=== PATIENT | female | born 1995 | race Caucasian/White ===

== ENCOUNTER 2023-04-05 18:50 | Inpatient (IN) | payer OTHER, SELFPAY ==
[2023-04-05 19:11] VITALS: RESP 18
--- NOTE | 2023-04-05 19:14 | ADMGEN ---
This patient, Kiki Rivera, was admitted to Labor/Delivery/Recovery 108-00. Patient/family oriented to hospital policies and general routines including ID bracelet, bed and alarms, visiting hours, pain management, procedures, bathroom and other care routines, personal items, smoking policy, room service/diet, and visiting hours. Information on how to activate the Rapid Response Team has been discussed. Patient/Family are encouraged to report perceived risks to care and to ask questions if they do not understand what they are told or what they should do.
[2023-04-05 19:26] VITALS: BP 135/83; PULSE 69
[2023-04-05 19:28] VITALS: BP 132/82; PULSE 72
[2023-04-05] MEDS: miSOPROStol 25 MCG TABLET 50 MCG BY MOUTH ×2 (19:47→23:51)
[2023-04-05 19:51] LABS: Basophils Percent Auto 0.3 % (0.2-1.2); Eosinophils Absolute Auto 0.1 K/mm3 (0-0.3); Eosinophils Percent Auto 1.2 % (0-4.4); Hematocrit 34.3 % (37.0-47.0); Hemoglobin 11.5 g/dL (12.0-15.0); Immature Granulocyte Absolute 0.05 K/mm3 (0.00-0.031); Immature Granulocyte Percent A 0.7 % (0-0.5); Lymphocytes Absolute Auto 1.98 K/mm3 (0.9-3.2); Lymphocytes Percent Auto 28.9 % (18.3-44.2); Mean Corpuscular HGB Conc 33.5 g/dl (32-36); Mean Corpuscular Hemoglobin 31.8 pg (26-34); Mean Corpuscular Volume 94.8 fl (80-100); Mean Platelet Volume 13.5 fl (7.4-10.4); Monocytes Absolute Auto 0.4 K/mm3 (0.1-0.6); Neutrophils Absolute Auto 4.3 K/mm3 (1.3-6.7); Neutrophils Percent Auto 62.9 % (45.5-73.1); Platelet Count Result 151 k/mm3 (150-375); Red Blood Count 3.62 M/mm3 (4.2-5.4); Red Cell Distribution Width 12.6 % (11.5-14.5); White Blood Count 6.9 K/mm3 (4.5-10.0)
[2023-04-05 20:19] VITALS: BMI 28.8
[2023-04-05 22:40] VITALS: TEMP 36.6
[2023-04-06] VITALS (177 sets, daily range): BP systolic 91–137; BP diastolic 47–101; PULSE 34–138; RESP 16–18; TEMP 36.4–36.6; O2SAT 87–100
[2023-04-06] MEDS: OXYTOCIN 30 UNITS/NS 500 ML 30 UNITS/500 ML BAG IV CONT (04:01)
[2023-04-06] MEDS: LACTATED RINGERS 1,000 ML 125 ML IV CONT ×2 (04:03→08:49)
--- NOTE | 2023-04-06 07:33 | WPDOBADMIT ---
Obstetrics - Admit Note Admission Note: record reviewed. No pertinent additions to the history and/or any subsequent changes in the physical findings that are not consistent with the expected course of the were found. Additions to the history and/or subsequent changes in the physical findings follow. iOL IUGR, SVE /-1 AROM moderate amount of clear, odorless fluid, anticipate vaginal delivery
--- NOTE | 2023-04-06 08:56 | WPDANESEPP ---
Anes - Eval Pre Procedure Procedure: epidural Date/Time: 04/06/23 08:56 Pre Op Diagnosis: IOL Patient Data Age: 27 Gender: F Height: 1.63 m Weight: 76 kg Last Vital Signs Temp 36.5 C 04/06/23 07:30 Pulse 53 L 04/06/23 08:46 Resp 16 04/06/23 07:30 BP 127/67 04/06/23 08:46 Pulse Ox 100 04/06/23 08:51 O2 Del Method Room Air 04/05/23 19:11 Allergies Allergy/AdvReac Type Severity Reaction Status Date / Time No Known Allergies Allergy Verified 04/05/23 19:22 Home Medications Medication Instructions Recorded Confirmed Type doxylamine succinate 25 mg tablet 25 mg PO DAILY 03/17/23 04/05/23 History (Unisom (doxylamine)) vits no.126-ferrous fum 1 tablet PO DAILY 03/17/23 04/05/23 History 28 mg iron-folic acid 800 mcg tablet (Classic ) Laboratory Tests 04/05/23 19:03 WBC 6.9 K/mm3 (4.5-10.0) RBC 3.62 L M/mm3 (4.2-5.4) Hgb 11.5 L g/dL (12.0-15.0) Hct 34.3 L % (37.0-47.0) MCV 94.8 fl (80-100) MCH 31.8 pg (26-34) MCHC 33.5 g/dl (32-36) RDW 12.6 % (11.5-14.5) Plt Count 151 k/mm3 (150-375) MPV 13.5 H fl (7.4-10.4) Immature Gran % (Auto) 0.7 H % (0-0.5) Neut % (Auto) 62.9 % (45.5-73.1) Lymph % (Auto) 28.9 % (18.3-44.2) Atlantic % (Auto) 6.0 % (2.6-8.5) Eos % (Auto) 1.2 % (0-4.4) Baso % (Auto) 0.3 % (0.2-1.2) Lymph # (Auto) 1.98 K/mm3 (0.9-3.2) Atlantic # (Auto) 0.4 K/mm3 (0.1-0.6) Eos # (Auto) 0.1 K/mm3 (0-0.3) Baso # (Auto) 0.0 K/mm3 (0.0-0.1) Abs Immat Gran (auto) 0.05 H K/mm3 (0.00-0.031) Absolute Neuts (auto) 4.3 K/mm3 (1.3-6.7) Absolute Nucleated RBC 0.0 K/mm3 (0.0-0.012) Nucleated RBC % 0.0 % (0.0-0.2) % Immature Plt Fraction 17.0 H % (0.9-11.2) RPR Pending Blood Type A Positive Antibody Screen Negative Patient hx anesthesia problems: none Family hx anesthesia problems: none Results Review: All pre-operative results and documents have been reviewed as part of the pre-operative evaluation. [facility] Family History Family History Father Hypertension Grandparent Breast cancer in female Diabetes mellitus Father Hypertension Social History Social History Years smoked: 2 Smoking status: Former smoker Tobacco type: cigarettes Substance use: never Do You Feel Safe in your Home?: No Lack of Transportation: No Lack of Food: Never True Current Housing: I Have Housing Concerned About Future Housing: No Difficulty Paying Gas/Electric Bills: No Difficulty Paying for Meds: No Currently Unemployed: No Education: Associate Degree Difficulty w/ Childcare or Family Care: No Spiritual care concerns: No Exam Day of Procedure 04/06/23 08:56 Patient weight: overweight Heart: regular rate and rhythm Lungs: normal air movement Airway: Mallampati scale Neurological: alert and oriented
--- NOTE | 2023-04-06 13:41 | PM.OBPRVD ---
OB - Vaginal Delivery Note Procedure Delivery date: 04/06/23 Events: Intrauterine Growth Restriction (IUGR) Induction method: AROM, Per Misoprostol Protocol and Per Pitocin Protocol Delivery monitor: External FHT and External Uterine Route of delivery: Episiotomy description: None Laceration Description: Periurethral (with ext to clitoris) Delivery repair: vicryl Specimen: Yes Quantitative Blood Loss (ml): 80 Anesthesia type: Epidural Disposition: Floor Baby Date of : 04/06/23 Time of : 13:25 Weeks of gestation at delivery: 38 gender: Female Weight (pounds): 6 Weight (ounces): 2 presentation: vertex position: Left Occiput Anterior Placenta delivery description: Spontaneous Cord Vessel Description: 3 Vessels, Nuchal Cord, Loose, Reduced and Delayed Cord Clamping score one minute: 7 score five minutes: 9 Narrative: mother and baby in stable condition
[2023-04-06] MEDS: OXYTOCIN 30 UNITS/NS 500 ML 30 UNITS/500 ML BAG 125 UNITS IV CONT (14:00)
[2023-04-06 15:27] LABS: Rapid Plasma Reagin Non-Reactive (NonReactive)
[2023-04-06] MEDS: BENZOCAINE 20% AER SPR (*SP) 56 GM CAN 1 SPRAY TOPICAL (15:50)
[2023-04-06] MEDS: WITCH HAZEL 40 PADS 1 PAD TOPICAL (15:50)
--- NOTE | 2023-04-06 16:05 | OBPPTRN ---
Patient transferred to post room #285 via wheelchair. Support person present. Oriented to unit, room, information board, rooming in, admission packet and security measures. Patient verbalizes understanding.
[2023-04-06] MEDS: ACETAMINOPHEN 325 MG TABLET 650 MG PO (23:10)
[2023-04-06] MEDS: IBUPROFEN 600 MG TABLET PO (23:10)
[2023-04-07 04:30] VITALS: BP 108/70; PULSE 56; RESP 16; TEMP 36.6; O2SAT 96
[2023-04-07 05:09] LABS: Hemoglobin 10.9 g/dL (12.0-15.0)
[2023-04-07 07:15] VITALS: BP 103/61; PULSE 64; RESP 16; TEMP 36.7; O2SAT 100
--- NOTE | 2023-04-07 08:01 | PM.OBPNVD ---
OB - PN: Subj Subjective Date/time seen: 04/07/23 08:01 Patient comments: no complaints, pain well controlled, incisional pain, tolerating diet and flatus present OB - PN: Obj Data Labs 04/07/23 04:28 Labs: Laboratory Results - last 24 hr 04/05/23 04/07/23 19:03 04:28 Hgb 10.9 L Hct 33.0 L RPR Non-reactive OB - PN A/P Plan day: 1 Plan: routine care Comments: No problems, routine care Time Spent With Patient Time: Total time spent is greater than 50% in coordination of care (as documented) at patient's floor/unit and/or counseling patient: Exam Const: General: comfortable, no acute distress and alert Resp: Effort & Inspection: normal respiratory effort Auscultation: no crackles, no rales and no rhonchi Cardio: Rate: regular rate Heart sounds: no click, no murmurs and no rubs GI: Inspection: non-distended GI Palp: No Tenderness to palpation present (GI) Auscultation: normal bowel sounds Other: Incision - CDI Extrem: General: normal to inspection, no pedal edema and no calf tenderness
--- NOTE | 2023-04-07 08:39 | WPDANESPN ---
Anes - Prog Note Post-Op Date/Time: 04/07/23 08:39 Cardiovascular status: normal Respiratory status: normal Airway patency: baseline Mental status: baseline Post-Op hydration status: normal Vital Signs: Last Vital Signs Temp 36.6 C 04/07/23 04:30 Pulse 56 L 04/07/23 04:30 Resp 16 04/07/23 04:30 BP 108/70 04/07/23 04:30 Pulse Ox 96 04/07/23 04:30 O2 Del Method Room Air 04/07/23 04:30 Pain Score (VAS): 2 I/O: Intake & Output 04/06/23 04/07/23 04/07/23 23:59 07:59 15:59 Intake Total 240 Balance 240 Laboratory Tests 04/07/23 04:28 04/05/23 04/07/23 19:03 04:28 Hgb 10.9 L Hct 33.0 L RPR Non-reactive Post-procedural complaints: none Patient Feedback: Patient satisfied with anesthetic care.
[2023-04-07] MEDS: ACETAMINOPHEN 325 MG TABLET 650 MG PO (09:44)
[2023-04-07] MEDS: DOCUSATE SODIUM 100 MG CAPSULE PO (09:48)
[2023-04-07] MEDS: MULTIVIT/MIN/PREN/FOL AC/IRON TABLET 1 TAB PO (09:48)
[2023-04-07] MEDS: IBUPROFEN 600 MG TABLET PO (09:50)
[2023-04-09 10:31] VITALS: BP 133/88; PULSE 84; RESP 18; TEMP 37.1; O2SAT 100
--- NOTE | 2023-04-09 15:35 | PM.OBDSVD ---
DS: Admitting Diagnosis Discharge Date 04/07/23 Admitting Diagnosis IOL, IUGR DS: Discharge Diagnosis Discharge Diagnosis (1) Vaginal delivery: Code(s): O80 - Encounter for full-term uncomplicated delivery Status: Acute OB - DS: Summary OB Procedures : None OB Procedures Intrapartum: Spontaneous Vag Delivery OB Procedures: : None Peripartum Data Laceration Description: Periurethral (with ext to clitoris) Episiotomy description: None Time Spent with Patient Time attestation: Total time spent providing and/or coordinating discharge services: DS: Data Data Completed and Pending Pending studies at discharge: Pending at discharge 04/06/23 13:59 Surgical [PTH] Routine Discharge Plan Discharge Consulting providers: Daylin Moon; Jerri Quigley; Namita Jurado Discharging Clinician: Kary Ellison Patient Disposition: Home, Self-Care Activity: pelvic rest Diet: regular Discharge Instructions: Education: Mom and Baby Guide Given to: Follow-Up: Call your delivering provider's office for an appointment to be seen in: 4 weeks Mom and baby should come to the [facility] for the follow-up appointment. Appointment Date/Time: Saturday, April 08, 2023 at 10:00 am What to expect at your follow-up visit: Call [phone] if you are unable to keep your appointment time. BREAST CARE: * Wear a snug supportive bra. * For engorgement discomfort: Breast Feeding: * Apply warm moist washcloths * Express milk as needed to relieve engorgement * Wear loose clothing * For sore nipples: * Identify correct latch-on * Apply warm moist washcloths before and after nursing * Air dry nipples after nursing * May apply Lansinoh cream to nipples PERINEAL CARE: * Until bleeding stops, use your giovanny bottle after urinating * Change your pad frequently throughout the day * You may take sitz baths several times a day (fill your bathtub with warm water and soak for 20 minutes.) Do NOT bathe in the water * No tub baths until seen by your physician - You may shower ACTIVITY: * Rest as much as possible. * Do not exercise or lift anything heavier than your baby (such as laundry or other children.) * Avoid stairs or driving as much as possible. * Do not put anything into the vagina. No douching, tampons, or sexual activity until seen by physician. NOTIFY PHYSICIAN IF YOU HAVE ANY QUESTIONS OR IF ANY OF THE FOLLOWING SYMPTOMS OCCUR: * If your episiotomy or incision becomes red, swollen, or more painful than what you have experienced in the hospital. * If your vaginal bleeding becomes foul smelling. * If your vaginal bleeding becomes more heavy than a period or if your bleeding changes from pink to bright red. However, you may pass an occasional walnut-sized clot once or twice for the first week . * If you experience a sharp, shooting pain in you calves. * If you discover a hard, reddened area on your breast or if you experience flu-like symptoms. DIET: * Eat regular, well-balanced meals. * Drink plenty of fluids daily. If , drink to thirst. Patient Instructions: Antibiotic Form Stand Alone Forms: General Discharge Information Follow-up/Referrals: Kary Ellison MD [Physician] - 4 Weeks Discharge Medications: Continued Classic 28 mg iron- 800 mcg Tablet 1 tablet PO DAILY Discontinued Unisom (doxylamine) 25 mg Tablet 25 mg PO DAILY Date of admission: 04/05/23 18:50 Primary Care Provider: Fozia Salazar Admitting Provider: Kary Ellison Attending physician on admission: Kary Ellison Condition: Stable
== END 2023-04-07 19:17 | disposition home or self-care (01) | DRG 807 ==
LOC: ANHOB2 04-07 17:27 → ANHLDR 04-09 12:00 → ANHOB2 04-09 12:00
PROVIDERS: Advanced Practice Midwife; Admitting Provider Obstetrics & Gynecology; PCP Nurse Practitioner Family; Visit Provider Obstetrics & Gynecology
DX: O36.5930 Maternal care for other known or suspected poor fetal growth, third trimester, not applicable or unspecified (principal); Z37.0 Single live birth; O69.81X0 Labor and delivery complicated by cord around neck, without compression, not applicable or unspecified; O71.82 Other specified trauma to perineum and vulva; Z3A.38 38 weeks gestation of pregnancy
CPT/HCPCS: 36415; 85014; 85018; 85025; 85055; 86592; 86850; 86900; 86901; 88307; A9270; J2590; J2795; J7120

== ENCOUNTER 2023-10-07 19:28 | Emergency (ER) | payer OTHER, SELFPAY ==
[2023-10-07 19:34] VITALS: BP 124/79; PULSE 73; RESP 16; TEMP 36.9; O2SAT 100
--- NOTE | 2023-10-07 20:02 | ED.GENADULT ---
HPI - General Adult General Chief complaint: Wound/Laceration Stated complaint: Insect Bite/Right Ankle Source: patient Mode of arrival: ambulatory Limitations: no limitations History of Present Illness HPI narrative: Patient presents for evaluation of an insect bite to the right Achilles region. She felt insect bite her yesterday. Today she noted bruising in the affected area. She became concerned and through a border along the bruising about 2 hours ago. She now indicates that bruising has improved. She took an allergy pill and some Benadryl earlier today which seems to be helping. Her mother is a nurse and advised that she come in for further evaluation. She is currently . She reports 1/10 pain in the affected area. Denies any discharge. No fever, chills, nausea, vomiting. Related Data Home Medications Medication Instructions Recorded Confirmed vits no.126-ferrous fum 1 tablet PO DAILY 03/17/23 04/05/23 28 mg iron-folic acid 800 mcg tablet (Classic ) escitalopram oxalate 10 mg tablet mg 10/07/23 Allergies Allergy/AdvReac Type Severity Reaction Status Date / Time No Known Allergies Allergy Verified 10/07/23 19:50 Review of Systems Review of Systems: CONSTITUTIONAL: Denies fever, chills, or sweats. EYES: Denies visual changes, redness, or discharge. ENT: Denies rhinorrhea, congestion, sore throat, or otalgia. CARDIOVASCULAR: Denies chest pain, palpitations, or edema. RESPIRATORY: Denies cough or dyspnea. GASTROINTESTINAL: Denies abdominal pain, nausea, vomiting, or diarrhea. GENITOURINARY: Denies dysuria or hematuria. SKIN: Reports bruising in the right Achilles region MUSCULOSKELETAL: Reports pain in the right Achilles region NEUROLOGIC: Denies headache, numbness, dizziness, or weakness. PSYCHIATRIC: Denies anxiety or depression. [facility] Past Medical History Medical History UTI (urinary tract infection) Vaginal delivery Surgical History Surgical History No pertinent past surgical history Family History Family History Father Hypertension Grandparent Diabetes mellitus Breast cancer in female Father Hypertension Mother Hypertension Disorder of thyroid Social History Social History Years smoked: 2 Smoking status: Former smoker Tobacco type: cigarettes Substance use: never Do You Feel Safe in your Home?: Yes Lack of Transportation: No Lack of Food: Never True Current Housing: I Have Housing Concerned About Future Housing: No Difficulty Paying Gas/Electric Bills: No Difficulty Paying for Meds: No Currently Unemployed: No Education: Associate Degree Difficulty w/ Childcare or Family Care: No Living arrangements: with family Occupation/Education: occupation Additional occupation/education comments: [employer] Gender identity (if verbalized by the patient): Female Spiritual care concerns: No Agree to blood products: Yes Exam Narrative: GENERAL: Well-appearing, well-nourished, and in no acute distress. HEAD: Normocephalic, atraumatic. EYES: PERRLA and EOMI. ENT: Nares clear, no rhinorrhea or epistaxis. Mucous membranes moist. Oropharynx without tonsillar hypertrophy exudate or other lesions. Bilateral TMs pearly roberson nonbulging NECK: Supple. No adenopathy or masses. No carotid bruits or JVD CHEST: Clear to auscultation. No respiratory distress. No wheezes rales or rhonchi HEART: Regular rate and rhythm. No murmur heard. Normal peripheral pulses. ABDOMEN: Soft, nontender, nondistended, normal active bowel sounds. EXTREMITIES: Normal range of motion. No edema. SKIN: There is mild ecchymosis noted in the right Achilles region NEURO: No focal deficits. Alert and santiago
== END 2023-10-07 20:04 | disposition home or self-care (01) ==
PROVIDERS: Emergency Provider Nurse Practitioner; PCP Nurse Practitioner Adult Health
DX: S80.861A Insect bite (nonvenomous), right lower leg, initial encounter (principal); W57.XXXA Bitten or stung by nonvenomous insect and other nonvenomous arthropods, initial encounter; Z87.891 Personal history of nicotine dependence
CPT/HCPCS: 99213; G0463

== ENCOUNTER 2024-09-12 19:14 | Emergency (ER) | payer OTHER, SELFPAY ==
--- OUTSIDE RECORDS SUMMARY | 2024-09-12 19:16 | XMS_ITS | Encounter Summary ---
Author Organization [facility] Address [address] [place] [address] Care Team Providers Care Motor Scooter Mechanic Name Role Phone Marli Bernal Primary Care Provider [phone] Encounter Details Date Type Department Care Team (Late st Contact Info) Description 03/19/2020 [employer] Message [facility] [address] [place] [address] [place] [address] [place] [address] RE: Test Results Social History Tobacco Use Types Packs/Day Years Used Date Smoking Tobacco: Never Smokeless Tobacco: Never Alcohol Use Standard Drinks/Week Comments Yes 0 (1 standard drink = 0.6 oz pur e alcohol) socially Comments Unknown Sex and Gender Information Value Date Recorded Sex Assigned at Not on file Legal Sex Female 8:11 PM CDT Gender Identity Female 03/27/2022 9:28 AM STAIN WIPER Sexual Orientation Not on file COVID-19 Exposure Response Date Recorded In the last month, have you been in contact with someone who was confirmed or suspected to have Coronavirus / COVID-19? No / Unsure 03/16/2020 3:28 PM STAIN WIPER documented as of this encounter Plan of Treatment Not on file documented as of this encounter Visit Diagnoses Not on filedocumented in this encounter Care Teams Motor Scooter Mechanic Relationship Specialty [place] [address] [place] [address] PCP - General PHYSICIAN AND TAXI INSTRUCTOR BUS TROLLEY 03/16/20 documented as of this encounter
--- OUTSIDE RECORDS SUMMARY | 2024-09-12 19:16 | XMS_ITS | Encounter Summary ---
Author Organization [facility] Address [address] [place] [address] Care Team Providers Care Fuel Agent Name Role Phone Marli Bernal Primary Care Provider Encounter Details Date Type Department Care Team (Late st Contact Info) Description 04/01/2020 [email or web address] Message [facility] [address] [place] [address] [place] [address] [place] [address] Test Results Social History Tobacco Use Types Packs/Day Years Used Date Smoking Tobacco: Never Smokeless Tobacco: Never Alcohol Use Standard Drinks/Week Comments Yes 0 (1 standard drink = 0.6 oz pur e alcohol) socially Comments Unknown Sex and Gender Information Value Date Recorded Sex Assigned at Not on file Legal Sex Female 8:11 PM CDT Gender Identity Female 03/27/2022 9:28 AM SENIOR OUTSIDE SALES REPRESENTATIVE Sexual Orientation Not on file COVID-19 Exposure Response Date Recorded In the last month, have you been in contact with someone who was confirmed or suspected to have Coronavirus / COVID-19? No / Unsure 03/16/2020 3:28 PM SENIOR OUTSIDE SALES REPRESENTATIVE documented as of this encounter Plan of Treatment Not on file documented as of this encounter Visit Diagnoses Not on filedocumented in this encounter Care Teams Fuel Agent Relationship Specialty [place] [address] [place] [address] PCP - General PHYSICIAN SALT MAKER 03/16/20 documented as of this encounter
--- OUTSIDE RECORDS SUMMARY | 2024-09-12 19:16 | XMS_ITS | Encounter Summary ---
Author Organization [facility] Address [address] [place] [address] Care Team Providers Care Shank Breaker Name Role Phone Marli Bernal Primary Care Provider Encounter Details Date Type Department Care Team (Late st Contact Info) Description 06/16/2020 [employer] Message [facility] Medicine [facility] [address] [place] [address] [place] [address] [place] [address] RE: Question Social History Tobacco Use Types Packs/Day Years Used Date Smoking Tobacco: Never Smokeless Tobacco: Never Alcohol Use Standard Drinks/Week Comments Yes 0 (1 standard drink = 0.6 oz pur e alcohol) socially Comments Unknown Sex and Gender Information Value Date Recorded Sex Assigned at Not on file Legal Sex Female 8:11 PM CDT Gender Identity Female 03/27/2022 9:28 AM WOOD BOX MAKER Sexual Orientation Not on file documented as of this encounter Plan of Treatment Not on file documented as of this encounter Visit Diagnoses Not on filedocumented in this encounter Care Teams Shank Breaker Relationship Specialty [place] [address] [place] [address] PCP - General PHYSICIAN BREAD DISTRIBUTOR 03/16/20 documented as of this encounter
--- OUTSIDE RECORDS SUMMARY | 2024-09-12 19:16 | XMS_ITS | Encounter Summary ---
Author Organization [facility] Address [address] [place] [address] Care Team Providers Care Carpet Mechanic Name Role Phone Marli Bernal Primary Care Provider Encounter Details Date Type Department Care Team (Late st Contact Info) Description 04/02/[address] [employer] [address] [facility] [address] [place] [address] [facility]: Pap smear results Social History Tobacco Use Types Packs/Day Years Used Date Smoking Tobacco: Never Smokeless Tobacco: Never Alcohol Use Standard Drinks/Week Comments Yes 0 (1 standard drink = 0.6 oz pur e alcohol) socially Comments Unknown Sex and Gender Information Value Date Recorded Sex Assigned at Not on file Legal Sex Female 8:11 PM CDT Gender Identity Female 03/27/2022 9:28 AM MELTER SUPERVISOR OXYGEN FURNACE Sexual Orientation Not on file COVID-19 Exposure Response Date Recorded In the last month, have you been in contact with someone who was confirmed or suspected to have Coronavirus / COVID-19? No / Unsure 03/16/2020 3:28 PM MELTER SUPERVISOR OXYGEN FURNACE documented as of this encounter Plan of Treatment Not on file documented as of this encounter Visit Diagnoses Not on filedocumented in this encounter Care Teams Carpet Mechanic Relationship Specialty [place] [address] [place] [address] PCP - General PHYSICIAN PERFUMER 03/16/20 documented as of this encounter
--- OUTSIDE RECORDS SUMMARY | 2024-09-12 19:17 | XMS_ITS | Encounter Summary ---
Author Organization [facility] Address [address] [place] [address] Care Team Providers Care Buyer Agent Name Role Phone Marli Bernal Primary Care Provider Encounter Details Date Type Department Care Team (Late st Contact Info) Description 03/11/2021 [employer] Message [facility] Family & Internal Medicine [facility] [address] [place] [address] [place] [address] [place] [address] [address] Social History Tobacco Use Types Packs/Day Years Used Date Smoking Tobacco: Never Smokeless Tobacco: Never Alcohol Use Standard Drinks/Week Comments Yes 0 (1 standard drink = 0.6 oz pur e alcohol) socially PHQ-2 Answer Date Recorded PHQ-2 Score - If the patient scores above 3, please move on to questions 3-9 0 10/20/2020 Comments No Sex and Gender Information Value Date Recorded Sex Assigned at Not on file Legal Sex Female 8:11 PM CDT Gender Identity Female 03/27/2022 9:28 AM DRY MOP MAKER Sexual Orientation Not on file documented as of this encounter Plan of Treatment Not on file documented as of this encounter Visit Diagnoses Not on filedocumented in this encounter Additional Health Concerns Assessment Noted Time PHQ-9 Depression Total Score: 0 10/21/19 21 12:50 PM CDT documented as of this encounter Care Teams Buyer Agent Relationship Specialty [place] [address] [facility] [place] [address] PCP - General PHYSICIAN LEGAL ARBITRATOR 03/16/20 documented as of this encounter
--- OUTSIDE RECORDS SUMMARY | 2024-09-12 19:17 | XMS_ITS | Clinical Summary ---
Author Organization [facility] Address [address] [place] [address] Care Team Providers Care Sales Representatives Name Role Phone Lanie Betancourt RN Unavailable Unavailable Unknown, Provider Primary Care Provider Unavaila ble Source Comments [facility],non-owned Affiliates and Associated Physician Practices is amultiple site organization consisting of ambulatory clinics and hospital sitesin [place], [place], [place] and [place]. This disclosure is being madepursuant to the Care Everywhere program and may not contain all information available regarding this patient. Last updated 17.[facility] Allergies No known active allergies Medications * Be aware that medications may not be up to date on this document. Alwaysverify current medications with the patient. levonorgestrel (MIRENA) 20 MCG/24HR IUD Active ibuprofen (MOTRIN) 600 MG tablet Take 1 tablet by mouth every 6 hours as needed for Pain 30 tablet 04/13/2017 Active PROCTOZONE-HC 2.5 % cream 3 04/24/2017 Active fluconazole (DIFLUCAN) 200 MG tabletIndication s:Vulvar itching One by mouth every other day for three doses. 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 Social History Tobacco Use Types Packs/Day Years Used Date Smoking Tobacco: Never Smokeless Tobacco: Never Alcohol Use Standard Drinks/Week Comments Yes 0 (1 standard drink = 0.6 oz pur e alcohol) occassional Comments No Sex and Gender Information Value Date Recorded Sex Assigned at Not on file Legal Sex Female 5:44 AM FRENCH WEAVER Gender Identity Not on file Sexual Orientation Not on file Last Filed Vital Signs Vital Sign Reading Time Taken Comments Blood Pressure 122/68 05/28/2017 2:31 PM CDT Pulse 68 04/13/2017 2:26 PM FRENCH WEAVER Temperature 36.4 C (97.5 F) 04/13/2017 12:40 PM FRENCH WEAVER Respiratory Rate 16 04/13/2017 2:26 PM FRENCH WEAVER Oxygen Saturation 100% 04/13/2017 2:26 PM FRENCH WEAVER Inhaled Oxygen Concentration - - Weight 70.3 kg (155 lb) 05/28/2017 2:31 PM CDT Height 162.6 cm (5' 4) 05/28/2017 2:31 PM CDT Body Mass Index 26.61 05/28/2017 2:31 PM CDT Plan of Treatment Health Maintenance Due Date Last Done Comments HEPATITIS C SCREENING 07/12/2014 DTAP/TDAP/TD VACCINES (1 - Tdap) 07/17/2015 HEPATITIS B VACCINE (1 of 3 - 19+ 3-dose series) 07/17/2015 PAP SMEAR 2017 HPV VACCINE (1 - 3-dose SCDM series) 07/17/2023 COVID-19 VACCINE (1 - 2023-2 5 season) 2023 DEPRESSION SCREENING 02/06/2024 INFLUENZA VACCINE (#1) 2024 , 11/06/2019, 11/14/2017 ZOSTER VACCINE (1 of 2) 2046 HIV SCREENING Completed 10/06/2022 HIB VACCINE Aged Out No longer eligi ble based on patient's age to complete this topic MENINGOCOCCAL (Group B) VACCINE SHARED DECISION-MAKING Aged Out No longer eligible based on patient's age to complete this topic MENINGOCOCCAL GROUPS A/C/Y/W VACCINE Aged Out No longer eligible b ased on patient's age to complete this topic PNEUMOCOCCAL VACCINE Aged Out No long er eligible based on patient's age to complete this topic Insurance [facility] Care Teams Sales Representatives Relationship Specialty Start Date End Date Unknown, Provider PCP - General 05/23/17 Lanie Betancourt, RN Registered Nurse 04/13/17
--- OUTSIDE RECORDS SUMMARY | 2024-09-12 19:17 | XMS_ITS | Clinical Summary ---
Author Organization [facility] Address [facility] [place] [address] Care Team Providers Care Church Warden Name Role Phone Grisel Bernal Primary Care Provider [phone] Allergies No known active allergies Medications levonorgestrel (MIRENA, 52 MG,) 20 MCG/24HR IUD 1 Intra Uterine Device by Intrauterine route once. Active buPROPion XL (WELLBUTRIN XL) 300 MG 24 hr tabletIndicatio ns:Decreased libido TAKE 1 TABLET(300 MG) BY MOUTH DAILY 90 tablet 2 Active spironolactone (ALDACTONE) 100 MG tabletIndicatio ns:Acne, unspecified acne type Take 1 tablet (100 mg total) by mouth daily. 90 tablet 3 Active ondansetron (ZOFRAN) 4 MG tabletIndicatio ns:Nausea Take 1 tablet (4 mg total) by mouth every 8 (eight) hours as needed for Nausea. 20 tablet 3 Active Active Problems Problem Noted Date Diagnosed Date Rectal bleeding 10/27/2020 Immunizations Immunization Administration Dates Next Due Dtap 08/02/2001, 8,01/16/1997,1996,1996 Hepatitis B Pediatric 05/04/1997,1996,07/06 Hib 01/16/1997,1996,1996 Hib (Generic) 01/16/1997,1996,1996 Influenza (Generic) 11/14/2017 Influenza Adult (Generic) 11/06/2019 MMR 08/02/2001,07/28/1997 Opv 08/02/2001,01/16/1997,1996 ,1996 Polio Opv (Generic) 08/02/2001,01/16/1997,1996,1996 Tdap (Generic) 03/20/2017 Varicella Vaccine 10/03/2016,07/28/1997 Family History Medical History Relation Comments Hyperlipidemia Father Hypertension Father Cancer Maternal Grandmother Breast canc er Hypertension Mother Thyroid Mother Relation Status Comments Father Alive Maternal Grandmother Mother Alive Social History Tobacco Use Types Packs/Day Years Used Date Smoking Tobacco: Never Smokeless Tobacco: Never Tobacco Cessation:Counseling Given: No Alcohol Use Standard Drinks/Week Comments Not Currently 0 (1 standard drink = 0.6 oz pur e alcohol) socially PHQ-2 Answer Date Recorded Patient Health Questionnaire-2 Score 0 03/30/2022 Comments No Sex and Gender Information Value Date Recorded Sex Assigned at Not on file Legal Sex Female 8:11 PM CDT Gender Identity Female 03/27/2022 9:28 AM CIGAR HEAD HOLER Sexual Orientation Not on file Last Filed Vital Signs Vital Sign Reading Time Taken Comments Blood Pressure 124/85 03/30/2022 1:58 PM CIGAR HEAD HOLER Pulse 79 03/30/2022 1:58 PM CIGAR HEAD HOLER Temperature 36.4 C (97.6 F) 03/30/2022 1:58 PM CIGAR HEAD HOLER Respiratory Rate 20 03/30/2022 1:58 PM CIGAR HEAD HOLER Oxygen Saturation 100% 03/30/2022 1:58 PM CIGAR HEAD HOLER Inhaled Oxygen Concentration - - Weight 65.5 kg (144 lb 6.4 oz) 03/30/2022 1:58 P M CIGAR HEAD HOLER Height 162.6 cm (5' 4) 03/30/2022 1:58 PM CIGAR HEAD HOLER Body Mass Index 24.79 03/30/2022 1:58 PM CIGAR HEAD HOLER Plan of Treatment Health Maintenance Due Date Last Done Comments Annual Physical 03/30/2023 03/30/2022, 03/08, 03/16/2020 HPV Vaccines (1 - 3-dose SCDM series) 07/17/2023 COVID-19 Vaccine ( season) 2023 Cervical Cancer Screening Pap Smear (Age 21 to 29) Every 3 Years 03/30/2025 03/30/2022, 03/23/2021, 03/16/2020 Cervical Cancer Screening 03/30/2025 DTaP, Tdap and Td Vaccines (7 - Td or Tdap) 03/20/2027 03/20/2017, 08/02/2001, 07/28/1997, Additional history exists Hepatitis B Vaccines Completed 05/04/1997, 1996, 1996 Hepatitis C Completed 03/30/2022 Meningococcal B Vaccine Aged Out No l onger eligible based on patient's age to complete this topic Meningococcal Vaccine Aged Out No danii mark anthony eligible based on patient's age to complete this topic Pneumococcal Vaccine: Pediatrics (0 to 5 Years) and At-Risk Patients (6 to 49 Years) Aged Out No longer eligible based on patient's age to complete this topic RSV Immunizations Under 20 Months Aged Out No longer eligible based on patient's age to complete this topic Procedures Procedure Name Priority Date/Time Associated Diagnosis Comments HEPATITIS C ANTIBODY Routine 03/30/2022 2:36 PM CIGAR HEAD HOLER Routine screening for STI (sexually transmitted infection) CYTOPATH CERV/VAG THIN LAYER Routine 03/30/2022 9:54 AM CIGAR HEAD HOLER Cervical cancer screening from Last 3 Months or Most Recently Relevant to Health Maintenance Results * HEPATITIS C ANTIBODY (03/30/2022 2:36 PM CIGAR HEAD HOLER) HEPATITIS C AB NON-REACTI VE NON-REACTI VE 03/30/2022 7:46 PM CIGAR HEAD HOLER [facility] 03/30/2022 2:36 PM CIGAR HEAD HOLER us [facility] LABORATORY Final Result [facility] [address] [place] [address], [place] [phone] * CYTOPATH CERV/VAG THIN LAYER [[id number]] (03/30/2022 9:54 AM CIGAR HEAD HOLER) THIN PREP PAP [facility] [address] [place] [address] Department of Pathology Pathology Report CERVICAL/VAGINAL PAP SMEAR REPORT Name: IGNACIOKIKI Viktoria Age: 6 1995 (Age: 26) Location: [facility] Sex: F Collected Date: 03/30/2022 Hospital #: [id number] Date Received: 04/03/2022 Date Reported: 04/04/2022 Provider: GRISEL LAI INTERPRETATION CERVICAL/ENDOCERVI SHERIF: SATISFACTORY FOR EVALUATION. ENDOCERVICAL/TRANS FORMATION ZONE COMPONENT ABSENT. NEGATIVE FOR INTRAEPITHELIAL LESION OR MALIGNANCY. Electronically Signed Out By TRINI Moran (ASCP) CLINICAL HISTORY Z12.4 SCREENING PAP TEST ThinPrep Pap Test with HR HPV testing in patient > 21 years with ASC-US diagnosis. Date of Last Menstrual Period: 03/09/22 Menstrual Status: Regular SPECIMEN SUBMITTED CERVICAL/ENDOCERVI SHERIF Specimen Received:1 Thin Prep Vial, Image Assisted Pap (SMD) Please note: The Pap smear is not a diagnostic test. It is a screening test. Negative results on combined screening (Pap test and HPV-DNA) have a high negative predictive value (99.1-100 percent) for cervical cancer. The pap test is not effective in detecting cervical adenocarcinoma. [facility] 03/30/2022 9:54 AM CIGAR HEAD HOLER 04/03/2022 9:54 AM CIGAR HEAD HOLER Comment:CERVICAL/ENDOCERVICA L us Grisel [facility] PATHOLOGY/CYTOLOGY ORDERABLE S Final Result [facility] [address] [place] [address], from Last 3 Months or Most Recently Relevant to Health Maintenance Insurance Care Teams Church Warden Relationship Specialty [place] [address] [place] [address] PCP - General PHYSICIAN ENVIRONMENTAL ATTORNEY 03/16/20
--- OUTSIDE RECORDS SUMMARY | 2024-09-12 19:17 | XMS_ITS | Encounter Summary ---
Author Organization [facility] Address [address] [place] [address] Care Team Providers Care Workers' Compensation Magistrate Name Role Phone Marli Bernal Primary Care Provider [phone] Encounter Details Date Type Department Care Team (Late st Contact Info) Description 04/04/2022 [employer] Message Enc [facility] Family & Internal Medicine [facility] [address] [place] [address] [place] [address] [place] [address] Routine blood work Social History Tobacco Use Types Packs/Day Years Used Date Smoking Tobacco: Never Smokeless Tobacco: Never Alcohol Use Standard Drinks/Week Comments Not Currently 0 (1 standard drink = 0.6 oz pur e alcohol) socially PHQ-2 Answer Date Recorded Patient Health Questionnaire-2 Score 0 03/30/2022 Comments No Sex and Gender Information Value Date Recorded Sex Assigned at Not on file Legal Sex Female 8:11 PM CDT Gender Identity Female 03/27/2022 9:28 AM SUSTAINABILITY COMMUNICATOR Sexual Orientation Not on file COVID-19 Exposure Response Date Recorded In the last 10 days, have yo u been in contact with someone who was confirmed or suspected to have Coronavirus/COVID-19? No / Unsure 03/30/2022 1:49 PM SUSTAINABILITY COMMUNICATOR documented as of this encounter Plan of Treatment Not on file documented as of this encounter Visit Diagnoses Not on filedocumented in this encounter Additional Health Concerns Assessment Noted Time PHQ-9 Depression Total Score: 0 10/21/19 21 12:50 PM CDT documented as of this encounter Care Teams Workers' Compensation Magistrate Relationship Specialty [place] [address] [place] [address] PCP - General PHYSICIAN TISSUE COORDINATOR 03/16/20 documented as of this encounter
--- OUTSIDE RECORDS SUMMARY | 2024-09-12 19:17 | XMS_ITS | Encounter Summary ---
Author Organization [facility] Address [address] [place] [address] Care Team Providers Care Supply Chain Program Manager Name Role Phone Marli Bernal Primary Care Provider [phone] Encounter Details Date Type Department Care Team (Late st Contact Info) Description 03/15/2022 [employer] Message Enc [facility] Medical [facility] Family & Internal [facility] [address] [place] [address] [place] [address] [place] [address] Reschedule apt Social History Tobacco Use Types Packs/Day Years [...] CDT Gender Identity Female 03/27/2022 9:28 AM TRACTOR MECHANIC HELPER Sexual Orientation Not on file documented as of this encounter Plan of Treatment Not on file documented as of this encounter Visit Diagnoses Not on filedocumented in this encounter Additional Health Concerns Assessment Noted Time PHQ-9 Depression Total Score: 0 10/21/19 21 12:50 PM CDT documented as of this encounter Care Teams Supply Chain Program Manager Relationship Specialty [place] [address] [place] [address] PCP - General PHYSICIAN INVESTOR RELATIONS SPECIALIST 03/16/20 documented as of this encounter
[2024-09-12 19:18] VITALS: BP 132/84; PULSE 73; RESP 16; TEMP 36.6; O2SAT 99
--- NOTE | 2024-09-12 19:20 | ED.WOUNDLAC ---
HPI - Wound/Laceration General Chief Complaint: Wound/Laceration Stated Complaint: left thumb lac Time Seen by Provider: 09/12/24 19:20 Source: patient Mode of arrival: ambulatory Limitations: no limitations History of Present Illness HPI narrative: 29 yo F presents with skin flap laceration to L thumb. Cut herself with knife prior to arrival. CMS intact. All systems reviewed and negatie except as noted above. Related Data Home Medications ?Medication ?Instructions ?Recorded ?Confirmed ?Last Taken ?Type No Home Medications 04/23/24 04/23/24 Unknown History Allergies Allergy/AdvReac Type Severity Reaction Status Date / Time No Known Allergies Allergy Verified 10/07/23 19:50 PMFSH Past Medical History Medical History UTI (urinary tract infection) Vaginal delivery Surgical History Surgical History No pertinent past surgical history Family History Family History Father Hypertension Grandparent Diabetes mellitus Breast cancer in female Father Hypertension Mother Hypertension Disorder of thyroid Social History Social History Years smoked: 2 Smoking status: Former smoker Tobacco type: cigarettes Substance use: never Do You Feel Safe in your Home?: Yes Lack of Transportation: No Lack of Food: Never True Current Housing: I Have Housing Concerned About Future Housing: No Difficulty Paying Gas/Electric Bills: No Difficulty Paying for Meds: No Currently Unemployed: No Education: Associate Degree Difficulty w/ Childcare or Family Care: No Living arrangements: with family Occupation/Education: occupation Additional occupation/education comments: [employer] Gender identity (if verbalized by the patient): Female Spiritual care concerns: No Agree to blood products: Yes Comments At time of signature, agree with nursing past medical, surgical, social and family history. There is no relevant family history pertinent to the presenting complaint. Exam Narrative: GENERAL: This is a well-nourished, well-developed patient, in no apparent distress. HEAD: normocephalic, atraumatic. EYES: PERRL. Sclera clear/white. Vision is grossly intact. EARS: External ears normal NOSE: External nose normal NECK: Neck supple, non-tender without lymphadenopathy, masses or thyromegaly. CARDIOVASCULAR: Regular rate and rhythm without murmurs, gallops, or rubs. RESPIRATORY: Clear to auscultation. Breath sounds equal bilaterally. No wheezes, rales, or rhonchi. SKIN: warm, Dry, no suspicious lesions or rash, good texture and turgor. superficial skin flap laceration to distal aspect L thumb. approx. 1 cm diameter. NEURO: awake, alert, and oriented to person, place and time. There were no obvious focal neurologic abnormalities. EXTREMITIES: No joint tenderness, effusion, or edema noted. Course Course Level of Care: Express Care Visit Vital Signs Vital signs: Vital Signs Temperature 36.6 C 09/12/24 19:18 Pulse Rate 73 09/12/24 19:18 Respiratory Rate 16 09/12/24 19:18 Blood Pressure 132/84 09/12/24 19:18 Pulse Oximetry 99 09/12/24 19:18 Oxygen Delivery Room Air 09/12/24 19:18 Temperature 36.6 C 09/12/24 19:18 Pulse Rate 73 09/12/24 19:18 Respiratory Rate 16 09/12/24 19:18 Blood Pressure 132/84 09/12/24 19:18 Pulse Oximetry 99 09/12/24 19:18 Oxygen Delivery Room Air 09/12/24 19:18 reviewed Procedures Laceration Laceration 1: Date: 09/12/24 Time: 19:25 Site: hand Side (If applicable): left (thumb) Size (cm): 1 Description: flap ====== Skin Level ====== Skin layer closed with: dermabond ====== Subcutaneous Layer ====== ====== Muscle Layer ====== ====== Tendon Layer ====== MDM - Wound/Laceration MDM Narrative Medical decision making narrative: skin flap laceration repaired with skin adhesive. pt educated on how to care for skin adhesive. Differential Diagnosis Differential diagnosis: Likely laceration, abrasion and avulsion of skin Discharge Plan Discharge Clinical Impression: Laceration of left thumb Qualifiers: Encounter type: initial encounter Damage to nail status: without damage Foreign body presence: without foreign body Qualified Code(s): S61.012A - Laceration without foreign body of left thumb without damage to nail, initial encounter Patient Disposition: Home Condition: Stable Instructions: Skin Adhesive Care (ED) Additional Instructions: Keep skin adhesive dry. Do not submerge in water. If it become wet, pat dry with towel. Let it fall off on it's own. Do not pull or pick at skin adhesive. Do not apply any ointments or lotions over skin glue. Patient Language: Latvian Prescriptions: No Action No Home Medications Follow-up/Referrals: Tiffanie Storey APRN [Primary Care Provider] - Time of Disposition: 19:29
== END 2024-09-12 19:40 | disposition home or self-care (01) ==
PROVIDERS: Emergency Provider Nurse Practitioner Family; PCP Nurse Practitioner Adult Health
DX: S61.012A Laceration without foreign body of left thumb without damage to nail, initial encounter (principal); W26.0XXA Contact with knife, initial encounter; Z87.891 Personal history of nicotine dependence
CPT/HCPCS: 12001; 99212; G0463

== ENCOUNTER 2024-10-29 13:03 | Outpatient (CLI) | payer OTHER, SELFPAY ==
--- NOTE | ~2024-10-29 | US_ITS ---
US thyroid INDICATION: Thyroid goiter TECHNIQUE: Real-time sonographic images of the thyroid gland were obtained. COMPARISON: No prior studies for comparison. FINDINGS: The right thyroid lobe measures 4.6 x 1.1 x 1.7 cm. The left thyroid lobe measures 3.7 x 1.2 x 1 cm. There is heterogeneous echotexture and echogenicity throughout the thyroid gland. No discrete nodules identified. Normal vascular flow is present. IMPRESSION: 1. Unremarkable thyroid without discrete nodule or abnormal vascularity. Reviewed, dictated and finalized at location O.
--- OUTSIDE RECORDS SUMMARY | 2024-10-29 13:07 | XMS_ITS | Clinical Summary ---
Author Organization [facility] Address [address] [place] [address] Care Team Providers Care Certified Drug Counselor Name Role Phone Lanie Betancourt RN Unavailable Unavailable Unknown, Provider Primary Care Provider Unavaila ble Source Comments [facility],non-owned Affiliates and Associated Physician Practices is amultiple site organization consisting of ambulatory clinics and hospital sitesin [place], [place], [place] and [place]. This disclosure is being madepursuant to the Care Everywhere program and may not contain all information available regarding this patient. Last updated 17.[facility] Allergies No known active allergies Medications * [...] on file Legal Sex Female 5:44 AM INSTRUMENTATION TECHNOLOGIST Gender Identity Not on file Sexual Orientation Not on file Last Filed Vital Signs Vital Sign Reading Time Taken Comments Blood Pressure 122/68 05/28/2017 2:31 PM CDT Pulse 68 04/13/2017 2:26 PM INSTRUMENTATION TECHNOLOGIST Temperature 36.4 C (97.5 F) 04/13/2017 12:40 PM INSTRUMENTATION TECHNOLOGIST Respiratory Rate 16 04/13/2017 2:26 PM INSTRUMENTATION TECHNOLOGIST Oxygen Saturation 100% 04/13/2017 2:26 PM INSTRUMENTATION TECHNOLOGIST Inhaled Oxygen Concentration - - Weight 70.3 [...] VACCINE (1 - 3-dose SCDM series) 07/17/2023 DEPRESSION SCREENING 02/06/2024 COVID-19 VACCINE (1 - 2023-2 5 season) 2024 INFLUENZA VACCINE (#1) 2024 , 11/06/2019, 11/14/2017 [...] patient's age to complete this topic Insurance [facility] CARE [facility] CARE [facility] Address: [address] [address] Care Teams Certified Drug Counselor Relationship Specialty Start Date End Date Unknown, Provider PCP - General 05/23/17 Lanie Betancourt, RN Registered Nurse 04/13/17
--- OUTSIDE RECORDS SUMMARY | 2024-10-29 13:08 | XMS_ITS | Data Portability ---
Author Organization [facility] [place] Address [address] [place] [place] [address] [place] [address] Care Team Providers Care Fowl Blood Tester Name Role Phone KATHERINE GARRISON Primary Care Provider [phone] Assessment Encounter Date Assessment Date Assessment LastModified by Organization Details LastModified Time 05/18/2023 05/18/2023 genesis well f/u one month med check [email or web address] Not available 05/18/2023 15:04:24 Plan of Treatment Reminders Order Date Submit Date Provider Last Modified By Organization Details Last Modified Time Details Appointments None recorded. Lab CT + NG + TV, RNA, unspecified specimen 2023 024 [facility] (Lab), [address], [place], [address], 4 11:57:12 test, urine 2023 024 [email or web address] [address], [address], [place], [address], 4 14:52:36 Referral None recorded. Procedures None recorded. Surgeries None recorded. Imaging non-stress test 2023 024 [email or web address] [address], [address], [place], [address], 4 13:23:23 Medication Orders Mirena 21 mcg/24 hr (up to 8 years) 52 mg intrauterin e device 2023 024 [email or web address] 1 [id number], [address], [place], [place], [id number], 10:12:33 Patient TargetsNo targets recorded. Patient InstructionsNo instructions recorded. Reason for Referral None Reported. Results Created Date Observation Date Name Description Value Unit Range Abnormal Flag Note LastModifiedBy Organization Detail LastModifiedTime 03/16/19 24 03/16/2023 CULTU RE: GROUP B STREP SCREE N, REFLE X SUSCE PTIBI LITY result report SEE RESULT S BELOW Test: Cultu re: Group B Strep , Refle x Susce ptibi lity ([facility]/ [facility]/K [facility] ) Speci men Sourc e: Vagin a/Rec britt Speci men Type: Vagin al/Re ctal Speci men Date: 024 2:49 PM Resul t Date: 2023 5:29 PM Resul t Statu s: Final resul t Abnor mal: No Resul ting Lab: [facility] [address] [address] Tel: CULTU RE ----- ----- ----- --- No Group B strep isola cecil at 2 days (bhanu ctive broth enhan cemen t) Not Available [facility] (Lab) [address] [place], [address], 03/19/2023 18:32:32 05/18/19 24 05/18/2023 CT/GC AND TRICH OMONA S VAGIN AISSATOU (RRNA ), URINE chlamydia trachomatis, PCR Negati ve negati ve Not Available [facility] (Lab) [address] [place], [address], 05/19/2023 11:57:11 05/18/19 24 05/18/2023 CT/GC AND TRICH OMONA S VAGIN AISSATOU (RRNA ), URINE neisseria gonorrhoeae, PCR Negati ve negati ve Not Available [facility] (Lab) [address], [place], [address], 05/19/2023 11:57:11 05/18/19 24 05/18/2023 CT/GC AND TRICH OMONA S VAGIN AISSATOU (RRNA ), URINE trichomonas vaginalis ribosomal RNA (rrna) Negati ve negati ve Not Available [facility] (Lab) [address], [place], [address], 05/19/2023 11:57:11 05/18/19 24 05/18/2023 pregn autumn test, urine HCG negati ve Not Available [place] [address], [place], [address], 05/18/2023 14:52:20 07/19/19 25 07/18/2024 VITAM IN B12 vitamin B12 576 pg/mL 180-91 4 Irene l Range : 180-9 14 pg/mL . Indet ermin ate Range : 145-1 80 pg/mL . Defic ient Range : <=145 pg/mL . Not Available [facility] (Lab) [address], [place], [address], 07/19/2024 06:52:45 07/19/19 25 07/18/2024 VITAM IN D, 25-OH (TOTA L D2/D3 ) vitamin D, 25-hydroxy, total 42.9 NG/mL 30.0-1 00.0 Sugge stive of Defic iency : <20 ng/mL Sugge stive of Insuf ficie ncy: 20-29 ng/mL Sugge stive of Suffi cienc y: 30-10 0 ng/mL Sugge stive of Toxic ity: >150 ng/mL Not Available [facility] (Lab) [address], [place], [address], 07/19/2024 06:52:45 03/30/19 24 03/30/2023 US, obste tric, follo w-up No observ ation record ed. [facility] [address], [place], [address], 03/30/2023 17:38:08 03/30/19 24 03/30/2023 US, obste tric, bioph ysica l profi le No observ ation record ed. [facility] [address], [place], [address], 03/30/2023 17:38:17 03/30/19 24 03/30/2023 US, doppl er, umbil ical arter y veloc imetr y No observ ation record ed. [facility] [address], [place], [address], 03/30/2023 17:38:26 03/30/19 24 03/30/2023 US, obste tric, follo w-up No observ ation record ed. JOHANN [address] [facility], [place], [address], 04/02/2023 12:49:57 04/02/19 24 04/02/2023 non-s tress test No observ ation record ed. [email or web address] [place] [address], [place], [address], 04/02/2023 19:23:57 04/02/19 non-s tress test No observ ation record ed. [email or web address] Not Available 04/02 18:00:23 04/04/19 24 04/04/2023 US, obste tric, bioph ysica l profi le + non-s tress test No observ ation record ed. [email or web address] [place] [address], [place], [address], 04/04/2023 18:59:56 04/04/19 24 04/04/2023 US, doppl er, umbil ical arter y veloc imetr y No observ ation record ed. [email or web address] [place] [address], [place], [address], 04/04/2023 18:59:47 04/04/19 24 04/04/2023 US, obste tric, bioph ysica l profi le + non-s tress test No observ ation record ed. scout [address], [place], [address], 04/04/2023 22:29:11 04/04/19 24 04/04/2023 non-s tress test No observ ation record ed. scout [place] [address], [place], [address], 04/04/2023 23:00:30 04/05/19 non-s tress test No observ ation record ed. [email or web address] [place] [address], [place], [address], 04/05/2023 14:16:35 Result Notes None recorded. Problems Name Problem SNOMED Code Status Onset Date Resolution Date Notes Provider Name and Address Organization Details Recorded Time Marginal insertio n of umbilica l cord 24898362 Completed serial growth Lida Herrera [facility] 4 10:41:25 Cr cisterna magna [id number] Completed MFM referral scheduled [facility] 9:45 Level II Lida Herrera [facility] 4 10:41:25 Pregnanc y 53178050 Completed 202204/13/2023 Lida Herrera [facility] 4 10:41:31 Problem Notes None recorded. Procedures Surgical History Date Name Laterality Status Provider Name and Address Organization Details Recorded Time 07/19/19 25 IUD Removal completed Daylin Moon CNM [address], [place], [address], [facility] 07/18/2024 10:49:23 05/18/19 24 IUD Insertion completed Daylin Moon CNM [address], [place], [address], [facility] 05/18/2023 15:04:14 03/08/19 23 Date of Last Pap Smear completed Kandi Jane [facility] 09/01/2022 10:09:01 12/29/19 22 IUD Removal completed Daylin Moon CNM [address], [place], [address], [facility] 12/28/2021 18:54:11 02/05/19 18 partial cystectomy completed Kandi Jane [facility] 12/28/2021 18:37:06 Imaging Results None recorded. Procedure Notes None recorded. Medical Equipment None Reported. Allergies No known drug allergies Medications Name Sig Start Date Stop Date Status Note LastModified by Organization Details LastModified Time lido/tetr a 23/7% ([id number]) oint cmpd FOR OFFICE ADMINIST RATION ONLY. FOR TOPICAL USE. NOT FOR OPTHALMI C USE. NOT FOR RESALE. 10/06 completed Not Available Not Available Not Available Mirena 21 mcg/24 hr (up to 8 years) 52 mg intrauter ine device Take 1 device by intraute rine route. 07/18 completed Not Available Not Available Not Available benzonata te 200 mg capsule 12/28 completed Not Available Not Available Not Available ondansetr on HCl 4 mg tablet 05/03 completed Not Available Not Available Not Available spironola ctone 100 mg tablet 06/30 completed Not Available Not Available Not Available phentermi ne 37.5 mg tablet TAKE 1 TABLET BY MOUTH EVERY DAY 12/28 completed Not Available Not Available Not Available sulfameth oxazole 800 mg-trimet hoprim 160 mg tablet take 1 tablet by oral route every 12 hours 12/28 completed Not Available Not Available Not Available tramadol 50 mg tablet take 1 - 2 Tablet by oral route every 6 hours as needed 01/02 completed Prescrib ed Elsewher e: No Locat ion: Yaniv younger [facility] odify By: dania marcano DateTime : 12/16/19 08:48:24 AM Not Available Not Available Not Available ondansetr on 8 mg disintegr ating tablet DISSOLVE 1 TABLET ON THE TONGUE EVERY 12 HOURS NEEDED FOR NAUSEA OR VOMITING 07/18 completed Not Available Not Available Not Available nystatin- triamcino lone 100,000 unit/gram -0.1 % topical ointment APPLY TOPICALL Y TO THE AFFECTED AREA TWICE DAILY 12/28 completed Not Available Not Available Not Available cephalexi n 500 mg capsule TAKE 1 CAPSULE BY MOUTH EVERY 6 HOURS 07/18 completed Not Available Not Available Not Available erythromy nika 5 mg/gram (0.5 %) eye ointment 12/28 completed Not Available Not Available Not Available clotrimaz ole-betam ethasone 1 %-0.05 % topical cream 12/28 completed Not Available Not Available Not Available norethind kamran acetate 1 mg-ethiny l estradiol 20 mcg tablet TAKE 1 TABLET BY MOUTH EVERY DAY 12/28 completed Not Available Not Available Not Available Terazol 7 0.4 % vaginal cream insert 1 applicat orful by vaginal route every day for 7 days at bedtime 12/18 completed Prescrib ed Elsewher e: No Locat ion: Yaniv [facility] odify By: eduar holman DateTime : 12/13/19 14 03:35:23 PM Not Available Not Available Not Available metronida zole 0.75 % topical gel 12/28 completed Not Available Not Available Not Available spironola ctone 50 mg tablet TAKE 2 TABLETS BY MOUTH EVERY DAY 12/28 completed Not Available Not Available Not Available escitalop paul 10 mg tablet Take 1 tablet every day by oral route. 07/18 completed Not Available Not Available Not Available bupropion HCl XL 300 mg 24 hr tablet, extended release Take 1 tablet every day by oral route for 90 days. 06/30 completed Not Available Not Available Not Available Wellbutri n XL 150 mg 24 hr tablet, extended release Take 1 tablet every day by oral route. 06/05 completed Not Available Not Available Not Available Ortho-Cyc nikita (28) 0.25 mg-35 mcg tablet TAKE 1 TABLET BY MOUTH EVERY DAY 01/02 completed Prescrib ed Bri e: No Locat ion: Yaniv younger [facility] odify By: dania marcano DateTime : 02/07/19 08:47:21 AM Not Available Not Available Not Available 07/18 completed Not Available Not Available Not Available DHA 10/06 completed Not Available Not Available Not Available Vitals Date Recorded Body height Body mass index (BMI) Body weight Systolic And Diastolic Provider Name and Address Organization Details Last Updated DateTime 04/04/2023 166.37 cm 27.5 kg/m2 11579.518 16 g 138/89 mm[Hg] [facility] 04/04/2023 17:33:56 Date Recorded Body height Body mass index (BMI) Body weight Systolic And Diastolic Provider Name and Address Organization Details Last Updated DateTime 05/04/2023 166.37 cm 24.6 kg/m2 55601.86 g 120/83 mm[Hg] [facility] 05/04/2023 16:15:01 Date Recorded Body height Body mass index (BMI) Body weight Systolic And Diastolic Provider Name and Address Organization Details Last Updated DateTime 05/18/2023 166.37 cm 24.1 kg/m2 60732.08 g 117/74 mm[Hg] [facility] 05/18/2023 14:30:28 Date Recorded Body height Body mass index (BMI) Body weight Systolic And Diastolic Provider Name and Address Organization Details Last Updated DateTime 06/15/2023 166.37 cm 24.7 kg/m2 23169.45 g 109/73 mm[Hg] [facility] 06/15/2023 14:15:09 Date Recorded Body height Body mass index (BMI) Body weight Systolic And Diastolic Provider Name and Address Organization Details Last Updated DateTime 07/18/2024 166.37 cm 20.3 kg/m2 84238.45 g 118/75 mm[Hg] Kandi Jane [facility] 07/18/2024 10:12:02 Social History Question Answer Notes LastModified by Organizat ion Details LastModified Time Tobacco Smoking Status Never Smoker Iliana Caba miguel, [facility] 02/28/2023 16:24:24 Are You Blind Or Do You Have Difficulty Seeing? No Information n ot available 12/28/2021 What Is Your Level Of Caffeine Consumption? Occasional [email or web address] Information not available 12/28/2021 In The 14 Days Before Symptom Onset, Have You Had Close Contact With A Laboratory-confirm ed COVID-19 While That Case Was Ill? No [email or web address] Information n ot available 12/28/2021 In The 14 Days Before Symptom Onset, Have You Had Close Contact With A Person Who Is Under Investigation For COVID-19 While That Person Was Ill? No [email or web address] Information not available 12/28/2021 Have You Been To An Area Known To Be High Risk For COVID-19? No Information not available 12/28/2021 Are You Deaf Or Do You Have Serious Difficulty Hearing? No [email or web address] Information not available 12/28/2021 What Type Of Diet Are You Following? REGULAR [email or web address] Information n ot available 12/28/2021 What Is The Highest Grade Or Level Of School You Have Completed Or The Highest Degree You Have Received? [id number] Information not available 06/30/2022 Are There Any Guns Present In Your Home? Yes [email or web address] Information not available 06/30/2022 Have You Ever Been Counseled For Unhealthy Alcohol Use? No [email or web address] Information not available 02/28/2023 Do You Use Protection During Sex? No Information not available 06/30/2022 Do You Use Your Seat Belt Or Car Seat Routinely? Yes [email or web address] Information not available 12/28/2021 Do You Have Smoke And Carbon Monoxide Detectors In Your Home? Yes [email or web address] Information not available 12/28/2021 How Much Tobacco Do You Smoke? No [email or web address] Information not available 06/30/2022 Do You Use Sunscreen Routinely? Yes [email or web address] Information not available 12/28/2021 Has Tobacco Cessation Counseling Been Provided? No [email or web address] Information not available 02/28/2023 Have You Used IV Drugs? No [email or web address] Information not available 06/30/2022 Do You Have Difficulty Walking Or Climbing Stairs? No [email or web address] Information not available 02/28/2023 Sex: Unknown Functional Status Question Answer Note LastModified by Organizat ion Details LastModified Time Do you use any illicit or recreational drugs? No Information not available 12/28/2021 Do you or have you ever used any other forms of tobacco or nicotine? No [email or web address] Information not available 02/28/2023 What is your level of alcohol consumption? None [email or web address] Information not available 10/06/2022 Are you able to walk independently without assistance or assistive devices? [email or web address] Information not available 12/28/2021 Are you able to care for yourself independently? Yes [email or web address] Information not available 02/28/2023 What is your occupation? [employer] [email or web address] Information not available 06/30/2022 Do you have difficulty dressing, bathing, grooming, or toileting? No [email or web address] Information not available 02/28/2023 What is your exercise level? Moderate [email or web address] Information not available 12/28/2021 Mental Status Question Answer Note LastModified by Organization D etails LastModified Time Do you feel stressed (tense, restless, nervous, or anxious, or unable to sleep at night)? [id number] [email or web address] Information not available 06/30/2022 Family History Relationship Description Onset Age of this Age Resolved Age Notes LastModified by Organization Details LastModified Time Maternal Grandmother Carcinoma in situ of breast [email or web address] Not available 07/06 09:53:56 Maternal Grandmother Diabetes mellitus [email or web address] Not available 06/30 14:07:30 Maternal Grandmother Hypercholest erolemia [email or web address] Not available 2022 15:44:07 Maternal Grandmother Malignant tumor of breast [email or web address] Not available 2022 15:44:07 Maternal Aunt Diabetes mellitus [email or web address] Not available 2022 15:44:07 Paternal Grandmother Hypercholest erolemia [email or web address] Not available 2022 15:44:07 Mother Hypertensive disorder [email or web address] Not available 2022 15:44:07 Father Hypertensive disorder [email or web address] Not available 2022 15:44:07 Medical History Condition Response Allergies (Food, seasonal, environmental ) N Other N Breast Cancer N Drug/Latex Allergies/Reactions N Blood Transfusion N Dermatologic Disorders N Lung Disease N Defects or Inherited Disease N Breast Problem N Gestational Diabetes N Hematologic disorders N Anesthesia Complications N History of STI N Deep Vein Thrombosis N Polycystic ovary syndrome N Anxiety Disorder Y Autoimmune disease N Arthritis N Infertility N Polyps N Acid Reflux (GERD) N History of abnormal pap N Cancer N Stroke N Varicosities N Neurologic/Epilepsy N Endometriosis N High Cholesterol N Headaches N Fibromyalgia N Kidney Disease N Heart Problems N Kidney or Bladder Problems N Thyroid Problems N GI Problems N Eating Disorder N Anemia N Art (IVF or FET) N Psychiatric Illness N Ovarian Cancer N Diabetes N Pulmonary (TB, Asthma) N Hepatitis/Liver Disease N Eczema N Urinary Tract Infection N Abuse/Domestic Violence N Asthma N Trauma/Violence N Depression/ depression Y Heart Disease N Pre-Eclampsia N Hypertension N Osteoporosis N Thrombophilias N Gynecological History Statement/Question Response Date of Last Mammogram Date of LMP 07/07/2022 On BCP's at Conception? N N Was last menstrual period normal Y STIs/STDs N HPV Vaccine N Duration of Flow (days) 3 Current Control Method None Age at First Child 27 Frequency of Cycle (Q days) 29 Sexually Active? Y None Age of first menstrual cycle 14 Date of Last Pap Smear 03/08/2022 Sexual Problems? N Desired Control Method None LMP Approximate N Obstetrics History GPAL:G 1 P 1 0 0 1 Type Value Full Term 1 Living 1 Total 1 Past Encounters Encounter ID Performer Location Encounter Start Date Encounter Closed Date Diagnosis/Indication Diagnosis SNOMED-CT Code Diagnosis ICD10 Code Diagnosis IMO Codes Diagnosis Note [id number] Adeline Arguello [facility] [address] [address] 06/06/2019 15:33:02 06/06/2019 16:00:57 Reduced libido 0097334 R68.82 Patient is currently using wellbutrin XL 300mg, off label use for low libido. She is doing well on this medication . She is surprised at how it has helped her. Feels libido is more responsive than before & her orgasms are a bit stronger. She is having no reported neg side effects. Her appetite is wnl; no drastic effects on mood-in fact she & her partner feel her mood is even better than prior to starting this medication . Feels more motivated. She is sleeping sufficient ly. The only reported side effect is a little constipati on which has been easily combated by increase in fresh produce, fiber & water. She wishes to continue on this therapy. Requests 90 day supply sent to [facility]. Total time of virtual-ZO OM visit was approx 15 mins with >50% consisting of counseling , education of patient's plan of care. [id number] Daylin Moon CNM [place] [address],[place] [address] 12/28/2021 18:06:50 01/02/2022 16:20:48 Removal of intrauterine device 01710059 Z30.432 [id number] [facility] [address],[place] [address] 06/30/2022 14:01:17 06/30/2022 14:26:31 Anovulation 58368303 N97.0 check labs, plan semen analysis, consider hsg, reviewed se of letrozole including arias, mood changes, ovarian hyperstimu lation, multiple gestation, order pelvic us [id number] Greyson Wood MD [facility] [address],[place] [address] 09/01/2022 09:15:14 09/01/2022 10:04:09 [id number] [facility] [address],[place] [address] 09/01/2022 09:16:53 09/01/2022 10:32:18 Amenorrhea 66064658 N91.2 reviewed office, precaution s, folder, plan nips and first look with dr wood at 12 week new ob Venereal d isease screening 569111719 Z11.3 [id number] Greyson Wood MD [facility] [place] [address],[place] [address] 10/06/2022 14:51:16 10/10/2022 14:20:12 screening 646000882 Z36.82 [id number] Greyson Wood MD [place] [address],[place] [address] 10/06/2022 14:53:53 10/10/2022 14:20:58 Routine care 446805663 Z34.01 [id number] [facility] [address],[place] [address] 11/01/2022 17:05:44 11/02/2022 17:39:04 Routine care 554327805 Z34.92 [id number] Greyson Wood MD [place] [address],[place] [address] 11/24/2022 16:26:59 11/26/2022 11:09:09 screening for malformation 138262181 Z36.3 Z3A.19 [id number] Daylin Moon [facility] [address],[place] [address] 11/29/2022 17:42:58 12/01/2022 04:40:40 Routine care 607724239 Z34.92 [id number] Greyson Wood MD [place] [address],[place] [address] 11/29/2022 17:42:36 11/30/2022 02:49:52 Medical examination for suspected condition 145260708 Z03.75 Z36.2 Z3A.20 [id number] [facility] [address],[place] [address] 01/03/2023 16:46:28 01/04/2023 08:53:44 Urinary symptoms 039310480 R39.9 Routine an tenatal care 025876185 Z34.92 [id number] Greyson Wood MD [facility] [place] [address],[place] [address] 01/03/2023 16:54:04 01/04/2023 08:57:48 Placental condition affecting management of mother 619649748 O43.102 Z3A.25 [id number] Greyson Wood MD [place] [address],[place] [address] 02/02/2023 14:17:58 02/02/2023 15:23:10 Marginal insertion of umbilical cord 44313256 O43.123 Z3A.29 [id number] Daylin Moon [facility] [address],[place] [address] 02/02/2023 14:18:22 02/02/2023 15:33:11 Routine care 585489613 Z34.92 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 [id number] Daylin Moon [place] [address],[place] [address] 02/16/2023 14:54:37 02/16/2023 15:33:07 Routine care 170007870 Z34.92 [id number] Daylin Moon [facility] [address],[place] [address] 02/28/2023 16:24:18 02/28/2023 17:47:01 Routine care 751459080 Z34.92 [id number] Greyson Wood MD [facility] [place] [address],[place] [address] 02/28/2023 16:23:39 02/28/2023 17:30:26 Marginal insertion of umbilical cord 66788634 O43.123 Z3A.33 [id number] Daylin Moon [facility] [address],[place] [address] 03/16/2023 12:25:51 03/16/2023 12:51:49 Routine care 226548983 Z34.92 [id number] Greyson Wood MD [facility] [address],[place] [address] 03/30/2023 16:26:35 03/31/2023 20:46:16 Small for gestational age fetus 579453801 O36.5999 O43.123 Z3A.37 [id number] [facility] [address],[place] [address] 03/30/2023 16:27:08 04/02/2023 03:23:00 Routine care 159835969 Z34.92 [id number] Greyson Wood MD [facility] [address],[place] [address] 04/02/2023 17:25:50 04/03/2023 08:54:17 Reduced movement 109209704 O36.8199 [id number] Greyson Wood MD [facility] [address],[place] [address] 04/04/2023 17:19:06 04/05/2023 08:46:50 growth restriction 04194761 O36.5999 Z3A.38 [id number] Greyson Wood MD [facility] [address],[place] [address] 04/04/2023 17:19:22 04/04/2023 18:44:07 Small for gestational age fetus 301238409 O43.123 O36.5930 Z3A.38 [id number] [facility] [address],[place] [address] 04/04/2023 17:19:38 04/04/2023 17:56:10 Routine care 699997405 Z34.92 [id number] Daylin Moon CNM [facility] [place] [address],[place] [address] 05/04/2023 15:59:34 05/04/2023 16:52:34 care 227658690 Z39.2 plan IUD at 6 weeks, abstain until placementc all next week if increased bleeding will order [place] [id number] Daylin Moon [facility] [address],[place] [address] 05/18/2023 14:10:10 05/18/2023 15:06:44 Insertion of intrauterine contraceptive device 68188221 Z30.430 Screening procedure 2012 5006 Z13.9 Venereal d isease screening 758170543 Z11.3 [id number] Daylin Moon [facility] [address],[place] [address] 06/15/2023 13:58:18 06/15/2023 14:34:45 Intrauterine device check 732761313 Z30.[address] in [address], f/u wwe [id number] Daylin Moon [facility] [address] [address],[place] [address] 07/18/2024 09:53:43 07/18/2024 11:07:50 Removal of intrauterine contraceptive device [id number] Z30.288 [id number] genesis well, plan to start tracking cycles with aaliyah/temp/m ucous, discussed failure rates when used as bcm, use barrier if concerned or cycles irregularf /u wwe Health Concerns Section Related Observation LastModified by Organization Detai ls LastModified Time None Recorded Concern Status LastModified by Organization Details LastModified Time None Recorded Advance Directives Directive None Recorded Payers Insurance Date Sequence Insurance Name Policy Number Policy Garcia Covered Member ID Garcia Member ID Guarantor Name 02/20/2022 1 [place] [id number] Gabe Wagner [id number] Kiki Rivera 08/18/2022 1 [place] [id number] Anastasiia Wagner [id number] Kiki Rivera 07/21/2024 1 R [id number] Melchor Rivera [id number] Kiki Rivera 07/18/2024 1 [facility] [id number] Kiki Rivera [id number] Kiki Rivera Notes Date Note Type Note Provider Name and Address Organization Details Recorded Time 4 text/html Generic HPI TemplateReported by Patient [address], [place], [address], [facility] 04/04/2023 17:48:56 4 text/html VisitReported by PatientHPIFor associated symptoms, patient reportsabnormal bleedingbut reportsno vaginal discharge,no pelvic pain,no dysuria,no urinary incontinence,no problems,no mastitis, andnormal mood(wants stitches trimmed, increase i now red bleeding, no odor, afebrile). For quality, patient reportsnsvd. For context, patient reportscomplications of : iugr,complications of labor: none, complications: none,feeding choice: breast,good support from partner/family, andresumed menstrual bleeding yes. For contraception plan, patient reportsiud.plan IUDROS as noted in the HPI Daylin Moon CNM [address], [place], [address], [facility] 05/04/2023 16:51:08 4 text/html ROS as noted in the [facility] Patient presents for IUD insertion. reviewed risks and benefits including bleeding, infection, perforation and expulsion, consent signed UPT neg [address], [place], [address], [facility] 05/18/2023 15:04:38 4 text/html ROS as noted in the [facility] IUD check, no complaintsusing lubrication for intercoursemood good Daylin Moon CNM [address], [place], [address], [facility] 06/15/2023 14:30:35 5 text/html ROS as noted in the HPI Patient presents for IUD removal, wants to track cycles for bcm [address], [place], [address], [facility] 07/18/2024 10:50:23 OBGyn Episode Ob Episode Information Episode Created Date Number of Fetuses Patient Bloodtype Patient rh Status Prepregnancy Weight lbs Domestic Partner Domestic Partner Phone Father Name Fixed Wing Pilot Status 10/07/19 23 1 A Positive 140 CLOSED Fetus Data First Name Last Name Admitted to NICU Weight (g) Sex Living Outcome Pediatric Complications Fetus ID Race Codes Race Delivery Type 2778.25 1 F true Full Term [id number] Vaginal Delivery Problems Problem Notes anxiety and depression start lexapro 10 mg 02/02 Problem Name Start Date End Date Resolution Snomed Code Not e Cr cisterna magna [id number] MFM referral scheduled [facility] 9:45 Level II US Marginal insertion of umbilical cord [id number] serial growth Dung Calculation Initial Dung Date Initial Exam Date Initial Exam Provider Initial Ultrasound Date Last Menstrual Period Date Ultra Sound Weeks Gestation 04/15/2023 10/06/2022 09/01/2022 07/09/2022 7 Eighteen To Twenty Week Dung Update Ultra Sound Date Fundal Height At Umbil Quickening Date Ultra Sound Latest Weeks Gestation Final Dung Confirmed By Final Dung Confirmed Date Final Dung Date Ultra Sound Latest Days Gestation 0 04/15/19 24 0 Pre- Flowsheet Flowsheet Date 10/06/2022 Guy Score Blood Edema Fundus Height Fundus Units Glucose Ketones Leukocytes Nitrite Labor Signs Protein Cervic Dilation Cervic Effacement Cervic Station Type Weight in lbs Pre/Post Dialysis Refused BP Diastolic BP Location Tested BP Systolic BP Type Fetus Heart Rate Present Fetus Movement Comments Flowsheet Date 10/06/2022 Guy Score Blood Edema Fundus Height Fundus Units Glucose Ketones Leukocytes Nitrite Labor Signs Protein Cervic Dilation Cervic Effacement Cervic Station 12 Type Weight in lbs Pre/Post Dialysis Refused Weight 140.451592777475 BP Diastolic BP Location Tested BP Systolic BP Type 81 R arm 129 sitting Fetus Heart Rate Present A 154 Fetus Movement Comments This patient is a 27-year-ol d 1 at 12 weeks gestation who presents for initial care. She has an unremarkable medical, surgical, obstetric history. We talked about care in great detail. We discussed vaccinations. She is not vaccinated for COVID. She has normal ultrasound today. She will begin routine care. Flowsheet Date 11/01/2022 Guy Score Blood Edema Fundus Height Fundus Units Glucose Ketones Leukocytes Nitrite Labor Signs Protein Cervic Dilation Cervic Effacement Cervic Station neg none none trace Type Weight in lbs Pre/Post Dialysis Refused Weight 140.591781204705 BP Diastolic BP Location Tested BP Systolic BP Type 82 128 Fetus Heart Rate Present A 158 Present Fetus Movement A No Comments doing well, feeling good, ex ercising, no complaints , precautions, f/u 4 weeks anatomy scan Flowsheet Date 11/24/2022 Guy Score Blood Edema Fundus Height Fundus Units Glucose Ketones Leukocytes Nitrite Labor Signs Protein Cervic Dilation Cervic Effacement Cervic Station Type Weight in lbs Pre/Post Dialysis Refused BP Diastolic BP Location Tested BP Systolic BP Type Fetus Heart Rate Present Fetus Movement Comments Flowsheet Date 11/29/2022 Guy Score Blood Edema Fundus Height Fundus Units Glucose Ketones Leukocytes Nitrite Labor Signs Protein Cervic Dilation Cervic Effacement Cervic Station Type Weight in lbs Pre/Post Dialysis Refused BP Diastolic BP Location Tested BP Systolic BP Type Fetus Heart Rate Present Fetus Movement Comments Flowsheet Date 11/29/2022 Guy Score Blood Edema Fundus Height Fundus Units Glucose Ketones Leukocytes Nitrite Labor Signs Protein Cervic Dilation Cervic Effacement Cervic Station Type Weight in lbs Pre/Post Dialysis Refused Weight 144.330929507391 BP Diastolic BP Location Tested BP Systolic BP Type 69 L arm 106 sitting Fetus Heart Rate Present Fetus Movement Comments reviewed anatomy scan follow up with q4 growth us, pt seeing functional medicine and pelvic floor PT, exercising regularly, rec flu and covid, education and precautions reviewed f/u 4 weeks Flowsheet Date 01/03/2023 Guy Score Blood Edema Fundus Height Fundus Units Glucose Ketones Leukocytes Nitrite Labor Signs Protein Cervic Dilation Cervic Effacement Cervic Station Type Weight in lbs Pre/Post Dialysis Refused BP Diastolic BP Location Tested BP Systolic BP Type Fetus Heart Rate Present Fetus Movement Comments Flowsheet Date 01/03/2023 Guy Score Blood Edema Fundus Height Fundus Units Glucose Ketones Leukocytes Nitrite Labor Signs Protein Cervic Dilation Cervic Effacement Cervic Station neg none none trace Type Weight in lbs Pre/Post Dialysis Refused Weight 149.887344329195 BP Diastolic BP Location Tested BP Systolic BP Type 79 128 Fetus Heart Rate Present Fetus Movement A Yes Comments patient is having some disch arge and back pain. urine neg sent for culture, reduce work outs, increase rest, high normal magna cisterna, neg NIPT, plan mfm US, precautions and education, f/u 4 weeks with us and gct Flowsheet Date 02/02/2023 Guy Score Blood Edema Fundus Height Fundus Units Glucose Ketones Leukocytes Nitrite Labor Signs Protein Cervic Dilation Cervic Effacement Cervic Station Type Weight in lbs Pre/Post Dialysis Refused BP Diastolic BP Location Tested BP Systolic BP Type Fetus Heart Rate Present Fetus Movement Comments Flowsheet Date 02/02/2023 Guy Score Blood Edema Fundus Height Fundus Units Glucose Ketones Leukocytes Nitrite Labor Signs Protein Cervic Dilation Cervic Effacement Cervic Station neg none none trace Type Weight in lbs Pre/Post Dialysis Refused Weight 154.125387439814 BP Diastolic BP Location Tested BP Systolic BP Type 77 117 Fetus Heart Rate Present Fetus Movement A Yes Comments efw 33%, taking childbirth, classes, some anxiety about not being able to exercise pp for mental health. wants to start ssri prior to delivery. has been on lexapro in the past with success. will start lexapro 10 mg daily, if any suicidal thoughts to ed, f/u in 2 weeks, gct done today Flowsheet Date 02/16/2023 Guy Score Blood Edema Fundus Height Fundus Units Glucose Ketones Leukocytes Nitrite Labor Signs Protein Cervic Dilation Cervic Effacement Cervic Station neg none 126 none trace Type Weight in lbs Pre/Post Dialysis Refused Weight 157.894276206647 BP Diastolic BP Location Tested BP Systolic BP Type 81 122 Fetus Heart Rate Present A 30 Fetus Movement A Yes Comments doing well, mood good on jatin apro, will continue, preadmit appt made, will discuss dates/primrose oil, massage at next visit f/u 2 weeks with growth Flowsheet Date 02/28/2023 Guy Score Blood Edema Fundus Height Fundus Units Glucose Ketones Leukocytes Nitrite Labor Signs Protein Cervic Dilation Cervic Effacement Cervic Station Type Weight in lbs Pre/Post Dialysis Refused BP Diastolic BP Location Tested BP Systolic BP Type Fetus Heart Rate Present Fetus Movement Comments Flowsheet Date 02/28/2023 Guy Score Blood Edema Fundus Height Fundus Units Glucose Ketones Leukocytes Nitrite Labor Signs Protein Cervic Dilation Cervic Effacement Cervic Station none trace Type Weight in lbs Pre/Post Dialysis Refused Weight 160.68150317983 BP Diastolic BP Location Tested BP Systolic BP Type 76 123 Fetus Heart Rate Present Fetus Movement A Yes Comments Patient c/o L rib pain, ice ok, tylenol, +FM, discussed red raspberry leaf tea, evening primrose oil, dates, education and precautions, efw 36% Flowsheet Date 03/16/2023 Guy Score Blood Edema Fundus Height Fundus Units Glucose Ketones Leukocytes Nitrite Labor Signs Protein Cervic Dilation Cervic Effacement Cervic Station neg none 34 none trace Type Weight in lbs Pre/Post Dialysis Refused Weight 161.530889821953 BP Diastolic BP Location Tested BP Systolic BP Type 78 122 Fetus Heart Rate Present A 138 Present Fetus Movement A Yes Comments doing well, mood good, had b reastfeeding class, baby health class, precautions and education, gbs done f/u 1 week Flowsheet Date 03/30/2023 Guy Score Blood Edema Fundus Height Fundus Units Glucose Ketones Leukocytes Nitrite Labor Signs Protein Cervic Dilation Cervic Effacement Cervic Station Type Weight in lbs Pre/Post Dialysis Refused BP Diastolic BP Location Tested BP Systolic BP Type Fetus Heart Rate Present Fetus Movement Comments Flowsheet Date 03/30/2023 Guy Score Blood Edema Fundus Height Fundus Units Glucose Ketones Leukocytes Nitrite Labor Signs Protein Cervic Dilation Cervic Effacement Cervic Station neg none none trace Type Weight in lbs Pre/Post Dialysis Refused Weight 167.290424156014 BP Diastolic BP Location Tested BP Systolic BP Type 87 131 Fetus Heart Rate Present Fetus Movement Comments IUGR abd <3 %, dopplers wnl, reviewed with dr. paniagua, rec IOL at 39 weeks, scheduled, +FM, kick counts reviewed, precautions and education, nst bpp on sunday Flowsheet Date 04/02/2023 Guy Score Blood Edema Fundus Height Fundus Units Glucose Ketones Leukocytes Nitrite Labor Signs Protein Cervic Dilation Cervic Effacement Cervic Station Type Weight in lbs Pre/Post Dialysis Refused BP Diastolic BP Location Tested BP Systolic BP Type Fetus Heart Rate Present Fetus Movement Comments Flowsheet Date 04/04/2023 Guy Score Blood Edema Fundus Height Fundus Units Glucose Ketones Leukocytes Nitrite Labor Signs Protein Cervic Dilation Cervic Effacement Cervic Station Type Weight in lbs Pre/Post Dialysis Refused BP Diastolic BP Location Tested BP Systolic BP Type Fetus Heart Rate Present Fetus Movement Comments Flowsheet Date 04/04/2023 Guy Score Blood Edema Fundus Height Fundus Units Glucose Ketones Leukocytes Nitrite Labor Signs Protein Cervic Dilation Cervic Effacement Cervic Station Type Weight in lbs Pre/Post Dialysis Refused BP Diastolic BP Location Tested BP Systolic BP Type Fetus Heart Rate Present Fetus Movement Comments Flowsheet Date 04/04/2023 Guy Score Blood Edema Fundus Height Fundus Units Glucose Ketones Leukocytes Nitrite Labor Signs Protein Cervic Dilation Cervic Effacement Cervic Station neg 1+ none trace Type Weight in lbs Pre/Post Dialysis Refused Weight 168.281459195385 BP Diastolic BP Location Tested BP Systolic BP Type 89 138 Fetus Heart Rate Present Fetus Movement A Yes Comments patient is having some disch arge. NST and bpp today, swelling increased, discussed IOL with dr wood and will plan IOL tomorrow, cytotec as planned reviewed with pt and +FM, f/u tomorrow Menstrual History Last Menstrual Date Menses Monthly On Bcp Conception Prior Menses Frequency Hcg Plus Date Menarche Onset Age 0607/09/2022 Genetic Screening And Infection History Question Response Note Mental Retardation/Autism false Patient's Age Will Be 35 Years Or Older At Estim ated Date of Delivery false Thalassemia (Turkmen, Romansh, Mediterranean, Or Background): MCV < 80 false Neural Tube Defect (Meningomyelocele, Spina Bifi da, Or Anencephaly) false Congenital Heart Defect false Down Syndrome false Edgar-Sachs (eg, Anabaptism, Cajun, Cambodian-[place]) f alse Khai Disease false Sickle Cell Disease Or Trait () false Hemophilia Or Other Blood Disorders false Muscular Dystrophy false Cystic Fibrosis false [place] false Intellectual Disability/Autism false If Yes, Was Person Tested For Fragile X? false Other Inherited Genetic Or Chromosomal Disorder false Maternal Metabolic Disorder (eg, Type 1 Diabetes , PKU) false Patient Or Baby's Father Had A Child With Defects Not Listed Above false Recurrent Loss, Or A Stillbirth false Medications (including Suppl ements, Vitamins, Herbs, OTC Drugs), Illicit/Recreational Drugs, Alcohol false If Yes, Agent(s) And Strength/Dosage false Any Other Genetic History false Live With Someone With TB Or Exposed To TB false Patient Or Partner Has History Of Genital Herpes false Rash Or Viral Illness Since Last Menstrual Perio d false History Of STD, Gonorrhea, Chlamydia, HPV, Syphi lis false Other Infection History false History of HIV false History of Hepatitis false Prior GBS-infected child false Hemoglobinopathy Or Carrier false Other Structural Defect false Recent Travel History Outside of Country false Delivery Information Delivery Date Delivery Type Labor Anesthesia Weeks Gestation Incision Type Labor Labor Length Hrs Delivered By Post Complications Tubal Sterilization Discharge Date Comments 4 Induce d Regional-Ep idural 38.5 false Daylin Moon CNM Marginal insertion of umbilical cord, Cr cisterna magna Discharge Information Feeding Method Contraceptive Method Maternal HG B and HCT Levels
== END 2024-10-29 13:04 | disposition home or self-care (01) ==
LOC: CHSIMG 13:05
PROVIDERS: PCP Nurse Practitioner Adult Health; Visit Provider Nurse Practitioner Adult Health
DX: E04.1 Nontoxic single thyroid nodule (principal)
CPT/HCPCS: 76536